=== PATIENT | male | born 1975 | race Caucasian/White ===

== ENCOUNTER 2018-04-07 06:38 | Day surgery (SDC) | payer OTHER, SELFPAY ==
[2018-04-03 10:48] VITALS: BMI 34.2
[2018-04-07] VITALS (12 sets, daily range): BP systolic 104–160; BP diastolic 73–99; PULSE 63–99; RESP 10–17; TEMP 36.1–36.6; O2SAT 94–99; BMI 34.2
[2018-04-07] MEDS: LACTATED RINGERS 1,000 ML 42 ML IV (07:20)
--- NOTE | 2018-04-07 07:23 | PM.PREOP ---
Pre-operative Note Interval Note Pre-op Check: Yes History & Physical Reviewed by Physician and Yes Exam Performed Changes: No
[2018-04-07] MEDS: MIDAZOLAM 2 MG/2 ML VIAL IV (07:46)
--- NOTE | 2018-04-07 08:03 | SUR.PREOP ---
Block start time 0748[] . Monitoring initiated and maintained throughout procedure. Oxygen and medications given per anesthesiologist instructions. Patient remained stable throughout procedure, no adverse reactions noted. Block end time []0800 .
[2018-04-07] MEDS: CEFTRIAXONE 2 GM/50 ML FROZ.PIGGY IV (08:05)
--- NOTE | 2018-04-07 09:02 | SUR.OPER ---
Lateral on padded OR bed with jones bag positioner, head on pillow, gel axillary roll in place, bottom leg bent with gel pad under knee to foot, upper leg straight and supported with pillows. Operative arm secured in shoulder positioning suspension device. non-operative arm secured on padded arm board. Safety belt at hip, tape over blanket securing lower legs.
[2018-04-07] MEDS: fentaNYL 100 MCG/2 ML INJ 50 MCG IV (12:15)
[2018-04-07] MEDS: HYDROMORPHONE 2 MG INJ 0.25 MG IV ×2 (12:15→12:20)
[2018-04-07] MEDS: BUPIVACAINE 0.25% (PF) VIAL 30 ML INJ (12:25)
[2018-04-07] MEDS: SODIUM CHLORIDE IRRIG SOLUTION 3,000 ML, EPINEPHrine 1 MG IRR (12:26)
--- NOTE | 2018-04-07 12:41 | P.OP_ITS ---
Operative Date/Time/Diagnoses Date of procedure: 04/07/18 Time of procedure: 08:25 Pre-op diagnosis: Left shoulder labral tear Left shoulder biceps tendinitis Left shoulder acromioclavicular joint osteoarthritis Post-op diagnosis: same Procedure & Clinicians Procedure: Left shoulder arthroscopic labral repair 3:00 to 9:00 A.m. shoulder mini open biceps tenodesis Left shoulder open distal clavicle excision. Same procedure as scheduled: Yes Indications: This is a 42-year-old male who is 17 years ago injured his left shoulder when he fell from a ladder. He has had pain in the shoulder that is worse and apprehensive position and difficulty with overhead activities. He additionally has pain anterior and superior. His MRI showed a labral tear and G lad lesion anteriorly there was additionally some mild bone loss anteriorly. He failed a long course of non operative management. We discussed the risks, benefits, alternatives to surgery. Risks included pain, bleeding, infection, stiffness, lack of symptom relief, need for further surgeries, implant complications, recurrent instability, anesthetic risks, damage to neurovascular structures, pop eye deformity. He signed a written consent for it. Surgeon: Michael Fan [facility] Technical Writer: Yasmany Eli Click Yes if Unassisted: No Anesthesia Type: General Operative Notes Findings: Examination under anesthesia. Full range of motion equal to the contralateral side in forward flexion and AB duction and external rotation. Load and shift showed no laxity anteriorly posteriorly or inferiorly. Diagnostic arthroscopy: Type 1 slap tear. No biceps tendon tear was appreciated. There was a nearly circumferential labral tear and a 5 mm by 20 mm G lad lesion along the [place] region. Rotator cuff is intact. No haggle lesion. Glenoid cartilage had grade 1/Ii changes. Humeral head was intact. Closure Type: primary Specimen(s): none sent Implants & Drains: Knotless suture tack x5 Arthrex Estimated Blood Loss (mL): 10 Blood products transfused: none Procedure in detail: The patient was met in the preoperative hold area and the procedure. Operative extremity was signed. Consent was verified. He desired to proceed. A regional anesthesia was performed. He was then brought to the operating room and surrendered anesthesia. Once general anesthesia been obtained he was placed in lateral decubitus position. Examination under anesthesia was performed on the right shoulder and then the left shoulder. All bony prominences were well padded and an axillary roll was placed. He was then prepped and draped in the standard sterile fashion. A surgical time-out was held to confirm the patient procedure, identity, allergies, images, antibiotics. All were in agreement we proceeded. Balanced suspension was applied and A standard diagnostic arthroscopy was performed of the shoulder using a posterior portal and an anterior superior portal. The anterior superior portal was identified with a spinal needle and a 575 cannula was placed. The findings of the diagnostic arthroscopy can be found above. Because of his preoperative symptoms and imaging consistent with biceps pathology the biceps tendon was taken at the labral junction. The stump was debrided with a sucker shaver. I then performed a general debridement of all loose tissue to improve my visibility. A standard mid glenoid portal was created. I then used a shallow and high angle liberator to liberate the labrum from 230 o 'clock anteriorly to 9 o'clock posteriorly. Sucker shaver was used in this interval to debride the glenoid rim. I then used a pineapple rasp to further debride the rim and to a bed of bleeding bone. Satisfied with my preparation I then moved on to the fixation. I planned to secure the labrum to the glenoid but not perform a large capsular shift because the main complaint was pain and not bull instability. A 7 o'clock percutaneous portal was established utilizing the Arthrex technique. I then drilled and placed my 1st anchor at the 5:30 position through the 7 o'clock portal. I used the Arthrex suture Lasso to pass the suture through the tissue and using knotless technique fixed it to the glenoid rim. I probed it with the probe to ensure was tight prior to cutting the suture. Satisfied with this I then placed an additional anchor at the 7 o' clock position and then at the 830 o'clock position I was very happy with the fixation I achieved and the position of the implants. I then shifted my visualization to the posterior portal and removed the cannula from that location. I then did advanced the fixation up the front of the glenoid placing an anchor at the 4:30 position and the 3 o'clock position. The 3 o'clock anchor was placed somewhat on the face covering the G LAD lesion. I again took only the labral tissue and did not perform a significant capsular shift. Once tight these sutures were also cut. I then probed the repair extensively and found to be well fixed. Balance suspension was then removed and the humeral head was found to be centered on the glenoid. All arthroscopic instruments were removed. I then identified the Waters major tendon as it crossed through the axilla and made a 5 cm incision centrally over this. I used scissor dissection to come through the fascia and then blunt finger dissection to follow it down into the long head of the biceps tendon. I visualized it with an [place] and then used my finger to deliver the long head of biceps tendon from the wound. I then used a Harding elevator to abrade the bicipital groove for all synovial tissue at that location. I then placed a suture tack centrally and high in the groove. I then lengthened 1 of the limbs and performed a whip stitch from 2 cm proximal to the musculotendinous junction. Therefore bites down 1 across and then 4 bites up. I then placed the other limb a single passed through the tendon ensuring that the tendon will lay down flat and the knot would be anterior. I then cut the excess tendon. I then pulled on the short limb and reduced the tendon down to the groove. I palpated this and ensure that was in the right spot. Satisfied with that I tied 7 reverse half hitches alternating posts and cut the excess suture. The patient was able to straighten the arm fully and there was good tension. we then proceeded with the distal clavicle excision. A 4 cm and longitudinal incision was made centered over the distal clavicle. Sharp dissection was brought down to the fascial layer and full-thickness fascial flaps were created. I then used Bovie electrocautery to make a capsulotomy to free the capsule from the acromion and the distal clavicle. Small Homans were placed around the distal clavicle and an 8 mm resection was performed. The intra- articular disc was removed with a rongeur. I placed my finger into the AC joint resection and fully cross his arm without any tightness. I then irrigated the wound copiously and closed it in layered fashion with 0 Vicryl in the capsular layer 2 0 Vicryl in the dermis and nylon in the skin. I closed the arthroscopy portals with nylon and the biceps of portal with 2 O Vicryl in the dermis and a running Monocryl on the skin. 10 cc of 0.25% Marcaine were placed near the biceps incision. Sterile dressing was applied. A splint was applied. He was awakened and transferred to recovery room. Complications: none Condition: stable Disposition: same day surgery Plan for aftercare: Sling with abduction pillow and pendulum exercises for 2 weeks Weeks 2-6 passive range of motion to 120? forward flexion 30? of external rotation 90? of AB duction. No internal rotation when in a forward flexed position. No active elbow flexion. Weeks 6-12 active range of motion in all planes. May start active elbow flexion. Weeks 12 and on gradual strengthening, introduced dynamic activities when and nearly full strength is achieved.
[2018-04-07] MEDS: OXYCODONE/ACETAMINOPHEN 5/325 TABLET 1 TAB PO (12:43)
--- NOTE | 2018-04-07 13:16 | SUR.PHASEII ---
AT BEDSIDE, PT TOLERATING PO FLUIDS. D/C INSTRUCTIONS REVIEWE.D WITH PT AND WITH VERBALIZED UNDERSTANDING
== END 2018-04-07 13:35 | disposition home or self-care (01) ==
PROVIDERS: Visit Provider Orthopaedic Surgery
PROC: 0RQK4ZZ Repair Left Shoulder Joint, Percutaneous Endoscopic Approach (ICD-10-PCS; CPT 29807; principal; 2018-04-07 07:45)
PROC: (CPT 29805; 2018-04-07 07:45)
DX: S43.432A Superior glenoid labrum lesion of left shoulder, initial encounter (principal); M75.22 Bicipital tendinitis, left shoulder; M19.012 Primary osteoarthritis, left shoulder; S43.492A Other sprain of left shoulder joint, initial encounter; W11.XXXA Fall on and from ladder, initial encounter; G89.18 Other acute postprocedural pain
CPT/HCPCS: 23430; 23120; 29806; 64415; J0171; J0696; J1100; J1170; J2250; J2405; J2704; J3010

== ENCOUNTER 2018-11-15 12:44 | Day surgery (SDC) | payer OTHER, SELFPAY ==
--- NOTE | 2018-11-15 | PATH_ITS ---
[facility] Accession Number: [id number] . 01 Material submitted: . PART A: duodenum - DUODENUM PART B: gastrointestinal site - GASTRIC BIOPSIES PART C: esophagus - PROXIMAL ESOPHAGEAL BIOPSY PART D: colon - RANDOM COLON BIOPSIES PART E: colon - DESCENDING COLON POLYP . 01 Clinical history: . A; R/O EOE B: R/O H. PYLORI C: R/O EOE D: R/O MICROSCOPIC COLITIS E: POLYP X3 . 02 Diagnosis: A. Duodenum, Biopsy: Duodenal mucosa with reactive epithelial changes. Negative for intraepithelial lymphocytosis. Negative for dysplasia and malignancy. . B. Stomach, Biopsies: Antral mucosa with no diagnostic abnormality. No evidence of Helicobacter on H/E stain. Negative for intestinal metaplasia. Negative for dysplasia and malignancy. . C. Proximal Esophagus, Biopsy: Squamous epithelium with no diagnostic abnormality. Intraepithelial eosinophils are not increased. Negative for dysplasia and malignancy. . D. Random Colon, Biopsies: Colonic mucosa with no diagnostic abnormality. Negative for active, chronic, and microscopic colitis. Negative for dysplasia and malignancy. . E. Descending Colon, Polyps x3, Biopsies: Sessile serrated adenomas. V/11/17/2018 . 02 Electronically signed: . Katrina Dean MD, Pathologist NPI- [id number] . 01 Gross description: . Part A: DUODENUM: Received in formalin are multiple fragment(s) of arvizu, soft tissue measuring 0.6 x 0.4 x 0.2 cm in aggregate submitted entirely in 1 cassette(s) Part B: GASTRIC BIOPSIES: Received in formalin are 3 fragment(s) of arvizu, soft tissue measuring 0.4 x 0.3 x 0.2 cm to 0.2 x 0.2 x 0.2 cm submitted entirely in 1 cassette(s) Part C: PROXIMAL ESOPHAGEAL BIOPSY: Received in formalin are 3 fragment(s) of arvizu, soft tissue measuring 0.4 x 0.3 x 0.1 cm to 0.3 x 0.3 x 0.1 cm submitted entirely in 1 cassette(s) Part D: RANDOM COLON BIOPSIES: Received in formalin are multiple fragment(s) of arvizu, soft tissue measuring 1.6 x 1.0 x 0.2 cm in aggregate submitted entirely in 1 cassette(s) Part E: DESCENDING COLON POLYP: Received in formalin are 3 fragment(s) of arvizu, soft tissue measuring 1.2 x 0.9 x 0.1 cm to 0.4 x 0.4 x 0.2 cm which are inked, serially sectioned and submitted entirely in 2 cassette(s) /CKI /CKI . 02 Pathologist provided ICD-10: D12.4 . 02 CPT . 408922, 141170, 392990, 257033, 557011 Performed at: 01 [facility] [address] [id number] MD Brigido Cho MD Phone: [phone] Performed at: 02 [facility] [address] [place], [place] [id number] MD Katrina Dean MD Phone: [phone]
[2018-11-15 13:09] VITALS: BP 134/97; PULSE 88; RESP 16; TEMP 36.7; O2SAT 94; BMI 34.2
[2018-11-15] MEDS: SODIUM CHLORIDE 0.9% 1,000 ML 150 ML IV (13:20)
--- NOTE | 2018-11-15 14:49 | PM.PREOP ---
Pre-operative Note Interval Note History & Physical reviewed/Exam performed by Physician: Yes Changes to H&P: No ASA Class (for procedural sedation): I
--- NOTE | 2018-11-15 15:01 | PM.OP.ENDO ---
Operative Date/Time/Diagnoses Date of procedure: 11/15/18 Procedure & Clinicians Study performed: EGD with biopsy Moderate conscious sedation was administered by the endoscopy nurse and supervised by the endoscopist. The following parameters were monitored: Oxygen saturation, heart rate, blood pressure, and response to care. Sedation: 6 mg midazolam, 100 micro g fentanyl Indications: Dysphagia, heartburn, dyspepsia, bloating, early satiety Procedure Notes Procedure in detail: Prior to the procedure, history and physical was performed, and patient medications and allergies were reviewed. Preprocedure nursing history and assessment was reviewed. Patient identification and proposed procedure were verified by the physician and nurse in the procedure room. The physical status of the patient was reassessed after the procedure. After informed consent was obtained including risks, benefits, and alternatives, the scope was passed under direct vision. Throughout the procedure, the patient's blood pressure, pulse, and oxygen saturations were monitored continuously. The upper endoscope was introduced through the mouth and advanced to the 2nd portion of the duodenum. Retroflexion was performed in the stomach. The patient tolerated the procedure well. The entire examined esophagus was normal appearing. The Z-line was regular and was located at 44 cm from the incisors. Biopsies were taken from the proximal esophagus to rule out eosinophilic esophagitis There was a 4 cm wedge-shaped defect in the fundus secondary to extrinsic compression (i.e. spleen) versus an intramural lesion. The stomach was otherwise normal appearing. Biopsies were taken to rule out H pylori. The entire examined duodenum was normal appearing. Biopsies taken to rule out celiac sprue. Impression: Normal appearing esophagus and Z-line. Biopsies taken from the proximal esophagus. Wedge shaped defect in the gastric fundus most likely secondary to extrinsic compression from the spleen. Also consider intramural gastric lesion. Otherwise normal-appearing stomach. Biopsied. Normal appearing duodenum. Biopsied. Complications: other (EBL minimal. Complications none) Plan for aftercare: Follow-up pathology results Consider EUS for further evaluation of the defect seen in the gastric fundus Proceed with colonoscopy today Follow up in GI clinic as previously recommended
[2018-11-15] MEDS: MIDAZOLAM 5 MG/5 ML VIAL IV (15:15)
[2018-11-15] MEDS: fentaNYL 250 MCG/5 ML INJ IV (15:16)
--- NOTE | 2018-11-15 15:35 | PM.OP.ENDO ---
Operative Date/Time/Diagnoses Date of procedure: 11/15/18 Procedure & Clinicians Study performed: Colonoscopy with biopsy Moderate conscious sedation was administered by the endoscopy nurse and supervised by the endoscopist. The following parameters were monitored: Oxygen saturation, heart rate, blood pressure, and response to care. Sedation: 2 mg midazolam, 100 micro g fentanyl. Plus medications given during EGD Indications: Unexplained diarrhea, hematochezia Procedure Notes Procedure in detail: Prior to the procedure, history and physical was performed, and patient medications and allergies were reviewed. Preprocedure nursing history and assessment was reviewed. Patient identification and proposed procedure were verified by the physician and nurse in the procedure room. The physical status of the patient was reassessed after the procedure. After informed consent was obtained including risks, benefits, and alternatives, the scope was passed under direct vision. Throughout the procedure, the patient's blood pressure, pulse, and oxygen saturations were monitored continuously. The colonoscope was introduced through the anus and advanced to the cecum as identified by the appendiceal orifice and ileocecal valve. The patient tolerated the procedure well. Bowel prep was deemed adequate to detect polyps greater than 5 mm. Perianal and digital rectal examinations were unremarkable. Retroflexion in the rectum revealed medium-sized grade 2 internal hemorrhoids. The terminal ileum was normal appearing. Three sessile polyps were seen in the descending colon ranging in size from 3 mm to 6 mm in diameter. The largest polyp was removed with a cold snare the remaining 2 removed with a Jumbo forceps. All were retrieved. Biopsies taken throughout the entire colon to rule out microscopic colitis Impression: Internal hemorrhoids Three 3-6mm sessile polyps removed from the descending colon Normal appearing terminal ileum Normal appearing colon. Biopsied. Sedation minutes: 37 Complications: other (EBL minimal. No complications) Plan for aftercare: Follow-up pathology results Repeat colonoscopy at a date to be determined based on pathology results Resume home medications Resume previous diet Follow up in GI clinic as previously recommended Discharge home with escort
[2018-11-15 15:38] VITALS: BP 129/85; PULSE 100; RESP 15; TEMP 37.3; O2SAT 96
[2018-11-15 15:53] VITALS: BP 128/86; PULSE 86; RESP 15; TEMP 36.2; O2SAT 94
== END 2018-11-15 16:03 | disposition home or self-care (01) ==
PROVIDERS: Visit Provider Internal Medicine
PROC: 0DJ08ZZ Inspection of Upper Intestinal Tract, Via Natural or Artificial Opening Endoscopic (ICD-10-PCS; CPT 43235; principal; 2018-11-15 14:00)
PROC: 0DJD8ZZ Inspection of Lower Intestinal Tract, Via Natural or Artificial Opening Endoscopic (ICD-10-PCS; CPT 45378; 2018-11-15 14:00)
DX: D12.4 Benign neoplasm of descending colon (principal); K64.1 Second degree hemorrhoids; R14.0 Abdominal distension (gaseous); R68.81 Early satiety
CPT/HCPCS: 45380; 43239; 88305; J2250; J3010

== ENCOUNTER 2019-09-04 08:06 | Day surgery (SDC) | payer OTHER, SELFPAY ==
[2019-09-03 15:06] VITALS: BMI 37.0
[2019-09-04] VITALS (14 sets, daily range): BP systolic 128–160; BP diastolic 84–108; PULSE 70–95; RESP 10–18; TEMP 36.2–36.5; O2SAT 91–99; BMI 34.7
--- NOTE | 2019-09-04 | DI.RAD.S_ITS ---
PROCEDURE: XR CERVICAL SPINE 2V OR 3V INDICATIONS: C5-6 MARTHA ACDF TECHNIQUE: 2 view(s) of the cervical spine were acquired. COMPARISON: None. FINDINGS: Bones: Immediate postoperative appearance after anterior discectomy and interbody disc prosthesis placement prosthesis placement at C5-C6, with normal alignment established. Soft tissues: No prevertebral soft tissue swelling. IMPRESSION: C5-6 discectomy and interbody disc prosthesis placement in normal position. Dictated by: James Hopkins M.D. on 09/04/2019 at 12:18 Approved by: James Hopkins M.D. on 09/04/2019 at 12:24
--- NOTE | 2019-09-04 09:22 | PM.PREOP ---
Pre-operative Note Interval Note History & Physical reviewed/Exam performed by Physician: Yes Changes to H&P: No
[2019-09-04] MEDS: CEFAZOLIN 2 GM/100 ML FROZ.PIGGY IV (10:00)
--- NOTE | 2019-09-04 10:25 | SUR.OPER ---
Supine, head on gel donut. Arms padded with gel pads, tucked at sides, towel roll under shoulders. Safety belt at thigh. Legs uncrossed.
[2019-09-04] MEDS: THROMBIN (RECOMBINANT) 5,000 UNIT VIAL 5000 UNIT TOP (10:30)
[2019-09-04] MEDS: BUPIVACAINE 0.25% W/ EPI 30 ML VIAL INJ (10:32)
[2019-09-04] MEDS: SODIUM CHLORIDE 0.9% 1,000 ML, GENTAMICIN 80 MG IRR (10:32)
[2019-09-04] MEDS: LACTATED RINGERS 1,000 ML 42 ML IV ×2 (11:00→12:24)
--- NOTE | 2019-09-04 11:10 | PM.OP.1 ---
Operative Date/Time/Diagnoses Date of procedure: 09/04/19 Time of procedure: 11:10 Pre-op diagnosis: Cervical disc herniation with myelopathy Post-op diagnosis: same Procedure & Clinicians Procedure: C5-6 ACDF with cage Iliac crest bone graft aspirate Use of microscope Same procedure as scheduled: Yes Indications: [age] year old male with intractable pain from cervical stenosis and myelopathy. They had failed conservative management and requested operative intervention. Risks and benefits of surgery were discussed and appropriate consents were obtained. Surgeon: Trae Jay Color Buffer: Shannan Yoder Anesthesia Type: General Operative Notes Findings: None Closure Type: primary Specimen(s): none sent Prosthetic devices, grafts, tissues, transplants, or devices: Deanna MARTHA-C Estimated Blood Loss (mL): 5 Procedure in detail: Patient was brought to the operating room and intubated on the table. A time-out was performed. Preoperative antibiotics were given. The neck was prepped and draped in the standard sterile fashion. Using a skin fold, we made a 3 cm oblique incision on the left side. We used Bovie to go through the platysma and then did a standard anterolateral blunt dissection down to the precervical fascia. Fascia was nicked and elevated up. A marker was placed and x-ray was taken for localization. We then subperiosteally elevated up the longus colli muscles. Self-retaining retractors were placed. Bogue Chitto pins were placed. We then brought in the microscope. A scalpel used to perform an annulotomy. We then used a combination of pituitaries and curettes and Kerrison to perform a complete anterior diskectomy at C5-6. We used the bur to take down the posterior osteophytes. We took down the PLL and used Kerrison to remove any posterior disc material and osteophytes. At the end we could from the nerve hook cephalad caudally and out the foramen and everything was opened. A small stab incision was made over the left anterior iliac crest. A Jamshidi needle was advanced into the pelvis and 2 mL of bone marrow was aspirated. We then used the trials. We then packed a 15 x 17 x 7 mm MARTHA-C cage with Primagen bone graft and the iliac crest harvest. The cage was placed under fluoroscopic guidance. We then placed our two locking plates. The self-retaining retractors and Bogue Chitto pins were removed and final x-rays taken. The wound was irrigated. There was no bleeding. The carotid was beating nicely. The platysma was closed. The superficial was closed. The skin was closed. A sterile dressing was placed. They were then extubated and brought to recovery room with no complications. Complications: none Post-operative Condition: stable Disposition: PACU Plan for aftercare: Outpatient. Soft collar for comfort.
--- NOTE | 2019-09-04 11:38 | SUR.PHASEI ---
Patient reported difficulty taking a deep breath. Is also c/o pain. Lungs clear. Dr. Monaco notified. Vistaril ordered.
[2019-09-04] MEDS: hydrOXYzine 50 MG/ML INJ 25 MG IM (11:41)
[2019-09-04] MEDS: fentaNYL 100 MCG/2 ML INJ IV ×2 (11:44→11:58)
--- NOTE | 2019-09-04 12:06 | SUR.PHASEI ---
Report given to Meche.
[2019-09-04] MEDS: OXYCODONE/ACETAMINOPHEN 5/325 TABLET 1 TAB PO ×2 (12:12→12:47)
[2019-09-04] MEDS: ONDANSETRON 4 MG/2 ML INJ IV (12:12)
--- NOTE | 2019-09-04 12:28 | SUR.PHASEI ---
Warm blanket provided. Placed pillow under right arm for comfort.
== END 2019-09-04 13:15 | disposition home or self-care (01) ==
PROVIDERS: Referring Provider Orthopaedic Surgery; Visit Provider Orthopaedic Surgery
PROC: (CPT 22551; principal; 2019-09-04 10:15)
DX: M50.022 Cervical disc disorder at C5-C6 level with myelopathy (principal); M48.02 Spinal stenosis, cervical region; S16.1XXA Strain of muscle, fascia and tendon at neck level, initial encounter; M25.78 Osteophyte, vertebrae
CPT/HCPCS: 22551; 22853; 20939; 72040; 76000; C1776; J0690; J2405; J2704; J3010; J3410